=== PATIENT | male | born 1950 | race Caucasian/White ===

== ENCOUNTER 2017-08-07 13:54 | Emergency (ER) | payer MEDICARE ==
[~2017-08-07] VITALS: Ht 172.7 cm; Wt 83.9 kg
[2017-08-07 13:55] VITALS: BP_SYST 140
[2017-08-07] MEDS ORDERED: BACITRACIN 1 GM OINT TP ONE (14:30)
[2017-08-07] MEDS ORDERED: DIPH-TET Vacc 0.5 ML VIAL I.M. ONE (14:30)
[2017-08-07] MEDS ORDERED: LIDOCAINE/EPI 2% 1:100000 20 ML VIAL INJ ONE (14:45)
[2017-08-07] MEDS ORDERED: IBUPROFEN 800 MG TABLET PO ONE (15:15)
[2017-08-07 15:45] VITALS: BP_SYST 138
== END 2017-08-07 15:45 | disposition home or self-care (01) ==
LOC: SED 13:54
DX: S50.852A Superficial foreign body of left forearm, initial encounter (principal); S81.812A Laceration without foreign body, left lower leg, initial encounter; I10 Essential (primary) hypertension; Z88.0 Allergy status to penicillin; X58.XXXA Exposure to other specified factors, initial encounter; Y93.89 Activity, other specified; Y92.89 Other specified places as the place of occurrence of the external cause; Y99.8 Other external cause status
CPT/HCPCS: 36415; 73090; 84484; 90714; 99284